=== PATIENT | male | born 1960 | race Two or more races ===

== ENCOUNTER 2018-08-31 11:35 | Emergency (ER) | payer MEDICAID ==
[~2018-08-31] VITALS: Ht 175.3 cm; Wt 81.6 kg
--- NOTE | 2018-08-31 11:36 | NUR ---
is at bedside doing the MSE.
[2018-08-31] MEDS ORDERED: IBUP-1957 PO (11:54)
[2018-08-31] MEDS ORDERED: DOCU100C36 PO (11:54)
[2018-08-31] MEDS ORDERED: TAMS-3 PO (11:54)
[2018-08-31] MEDS ORDERED: NEOM1PAC2 TP (11:54)
[2018-08-31] MEDS ORDERED: diphenhydrAMINE 50 MG/1 ML VIAL IM ONE (12:00)
[2018-08-31 12:06] LABS: BASOPHILS # (AUTO) 0.1 K/uL (0.0-8.0); BASOPHILS % (AUTO) 1.4 % (0.0-2.0); EOSINOPHILS % (AUTO) 0.5 % (0.0-7.0); HEMATOCRIT 39.9 % (36.7-47.1); HEMOGLOBIN 13.8 g/dL (12.5-16.3); LYMPHOCYTES % (AUTO) 22.2 % (20.5-51.5); MEAN CORPUSCULAR HEMOGLOBIN 34.5 uug (23.8-33.4); MEAN CORPUSCULAR HGB CONC 35 g/dL (32.5-36.3); MEAN CORPUSCULAR VOLUME 99.8 fL (73.0-96.2); MONOCYTES # (AUTO) 0.6 K/uL (2.0-10.0); MONOCYTES % (AUTO) 6.8 % (0.0-11.0); NEUTROPHILS # (AUTO) 6.3 K/uL (1.8-8.9); NEUTROPHILS % (AUTO) 69.1 % (38.5-71.5); PLATELET COUNT (AUTO) 170 K/uL (152-348); RED BLOOD CELL COUNT(AUTO) 3.99 MIL/uL (4.06-5.63); WHITE BLOOD COUNT (AUTO) 9.1 K/uL (3.6-10.2)
[2018-08-31 12:07] LABS: CREATININE 0.8 mg/dL (0.6-1.3); POTASSIUM 3.8 mmol/L (3.5-5.1)
[2018-08-31] MEDS ORDERED: diphenhydrAMINE 50 MG/1 ML VIAL ONE (12:53)
[2018-08-31] MEDS ORDERED: IV NORMAL SALINE 250 ML IV ONE (13:51)
[2018-08-31] MEDS ORDERED: SWABABLE VALVE TRANSFER SET EA MC ONE (13:51)
[2018-08-31] MEDS ORDERED: NORMAL SALINE FLUSH 10 ML DISP.SYRIN ONE (13:51)
[2018-08-31] MEDS ORDERED: IOHEXOL 350 100 ML INFUS..BTL ONE (13:51)
--- NOTE | 2018-08-31 13:55 | NUR ---
Patient ambulated with cane to bathroom 3x, no acute change in condition seen, pending results and disposition
--- NOTE | 2018-08-31 15:44 | NUR ---
IV removed. Catheter intact and site benign. Pressure and 4x4 gauze applied to site. No bleeding noted. Patient discharged to home in stable conditon. Written and verbal after care instructions given to patient. Patient verbalizes understanding of instructions. EMT [id number] accepted hands off report.
== END 2018-08-31 15:48 | disposition home or self-care (01) ==
LOC: ER 11:35
DX: R07.9 Chest pain, unspecified (principal); R21 Rash and other nonspecific skin eruption; L29.9 Pruritus, unspecified
CPT/HCPCS: 36415; 71045; 71275; 80048; 85025; 85379; 93005; 96372; 99285; J1200; Q9967; A4663; J3490; J7050